=== PATIENT | female | born 1995 | race Caucasian/White ===

== ENCOUNTER 2018-05-30 15:00 | Observation (INO) | payer OTHER, BC ==
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
== END 2018-05-30 20:30 | disposition home or self-care (01) ==
LOC: MW.OBCHECK 15:00 → MW.ED 15:00 → MW.OBCHECK 15:36 → EDSTATUS 15:47 → MW.OB 15:48
PROVIDERS: ADMIT Obstetrics & Gynecology; ATTEND Obstetrics & Gynecology
DX: O99.89 Other specified diseases and conditions complicating pregnancy, childbirth and the puerperium (principal); R10.10 Upper abdominal pain, unspecified; O46.93 Antepartum hemorrhage, unspecified, third trimester; Z3A.29 29 weeks gestation of pregnancy
CPT/HCPCS: 36415; 59025; 76819; 76819-26; 81003; 85025; 86850; 86900; 86901; 99282; G0378

== ENCOUNTER 2018-08-22 06:53 | Emergency (ER) | payer BC ==
[2018-08-22] MEDS ORDERED: Alum Hydrox/Mag Hydrox/Simeth 15 ML, Lidocaine 2% 5 ML PO ONE ×2 (07:12)
[2018-08-22] MEDS ORDERED: Sodium Chloride 0.9% 1,000 ML IV ONE (07:14)
--- NOTE | 2018-08-22 07:14 | EDM.PDOC ---
ED HPI GENERAL MEDICAL PROBLEM - General Chief Complaint: Abdominal Pain Stated Complaint: ABD PAIN Time Seen by Provider: 08/22/18 07:08 - History of Present Illness INITIAL COMMENTS - FREE TEXT/NARRATIVE: HISTORY AND PHYSICAL: History of present illness: Patient is a 22-year-old female past 3 weeks from a vaginal delivery without complications who presents with return of intermittent epigastric pain she states she did some lifting a week ago but did not think much about that this is been episodic she denies history of known gallbladder disease or other complaints. She's had no melena or hematochezia no vomiting no history of gastritis or ulcer. Review of systems: As per history of present illness and below otherwise all systems reviewed and negative. Past medical history: As per history of present illness and as reviewed below otherwise noncontributory. Surgical history: As per history of present illness and as reviewed below otherwise noncontributory. Social history: No reported history of drug or alcohol abuse. Family history: As per history of present illness and as reviewed below otherwise noncontributory. Physical exam: HEENT: Atraumatic, normocephalic, pupils reactive, negative for conjunctival pallor or scleral icterus, mucous membranes moist, throat clear, neck supple, nontender, trachea midline. Lungs: Clear to auscultation, breath sounds equal bilaterally, chest nontender. Heart: S1S2, regular, negative for clicks, rubs, or JVD. Abdomen: Soft, nondistended, mild tenderness in epigastrium is not well localized is no rebound no guarding Negative for masses or hepatosplenomegaly. Negative for costovertebral tenderness. Pelvis: Stable nontender. Genitourinary: Deferred. Rectal: Deferred. Extremities: Atraumatic, negative for cords or calf pain. Neurovascular unremarkable. Neuro: Awake, alert, oriented. Cranial nerves II through XII unremarkable. Cerebellum unremarkable. Motor and sensory unremarkable throughout. Exam nonfocal. Diagnostics: CBC CMP lipase UA chest x-ray EKG ultrasound gallbladder Therapeutics: Saline 1 L bolus GI cocktail Impression: #1 intermittent epigastric abdominal pain #23 weeks Definitive disposition and diagnosis as appropriate pending reevaluation and review of above. epigastric Pain Score (Numeric/FACES): 6 - Related Data Allergies Allergy/AdvReac Type Severity Reaction Status Date / Time No Known Allergies Allergy Verified 08/22/18 06:57 Home Meds: Home Meds . [No Known Home Meds] 08/22/18 [History] Past Medical History - Past Health History Medical/Surgical History: Denies Medical/Surgical History HEENT History: Reports: None Cardiovascular History: Reports: None Respiratory History: Reports: None Gastrointestinal History: Reports: None Genitourinary History: Reports: None CREDIT REPORTER History: Reports: , Other (See Below) Other CREDIT REPORTER History: preeclampsia, Musculoskeletal History: Reports: None Neurological History: Reports: None Psychiatric History: Reports: None Endocrine/Metabolic History: Reports: None Hematologic History: Reports: None Immunologic History: Reports: None Oncologic (Cancer) History: Reports: None Dermatologic History: Reports: None - Past Surgical History Head Surgeries/Procedures: Reports: None HEENT Surgical History: Reports: None Cardiovascular Surgical History: Reports: None Respiratory Surgical History: Reports: None GI Surgical History: Reports: None Female Surgical History: Reports: None Endocrine Surgical History: Reports: None Neurological Surgical History: Reports: None Musculoskeletal Surgical History: Reports: None Oncologic Surgical History: Reports: None Dermatological Surgical History: Reports: None Social & Family History - Family History Family Medical History: Noncontributory - Tobacco Use Smoking Status *Q: Never Smoker Second Hand Smoke Exposure: No - Caffeine Use Caffeine Use: Reports: Coffee - Recreational Drug Use Recreational Drug Use: No ED ROS GENERAL - Review of Systems Review Of Systems: ROS reveals no pertinent complaints other than HPI. ED EXAM, GENERAL - Physical Exam Exam: See Below (See dictation) Course - Vital Signs Last Recorded V/S: Last Vital Signs Temp 35.8 C 08/22/18 06:54 Pulse 81 08/22/18 06:54 Resp 18 08/22/18 06:54 BP 149/61 H 08/22/18 06:54 Pulse Ox 94 L 08/22/18 06:54 - Orders/Labs/Meds Orders: Active Orders 24 hr Category Date Time Status EKG Documentation Completion [RC] STAT Care 08/22/18 07:12 Active CULTURE URINE [RM] Stat Lab 08/22/18 07:01 Received Labs: Laboratory Tests 08/22/18 08/22/18 08/22/18 Range/Units 07:01 07:25 07:25 WBC 7.09 (4.0-11.0) K/uL RBC 4.10 L (4.30-5.90) M/uL Hgb 12.1 (12.0-16.0) g/dL Hct 37.8 (36.0-46.0) % MCV 92.2 (80.0-98.0) fL MCH 29.5 (27.0-32.0) pg MCHC 32.0 (31.0-37.0) g/dL RDW Std Deviation 43.7 (28.0-62.0) fl RDW Coeff of Kaylee 13 (11.0-15.0) % Plt Count 401 H (150-400) K/uL MPV 9.10 (7.40-12.00) fL Neut % (Auto) 53.3 (48.0-80.0) % Lymph % (Auto) 31.2 (16.0-40.0) % [place] % (Auto) 12.6 (0.0-15.0) % Eos % (Auto) 2.5 (0.0-7.0) % Baso % (Auto) 0.4 (0.0-1.5) % Neut # (Auto) 3.8 (1.4-5.7) K/uL Lymph # (Auto) 2.2 (0.6-2.4) K/uL [place] # (Auto) 0.9 H (0.0-0.8) K/uL Eos # (Auto) 0.2 (0.0-0.7) K/uL Baso # (Auto) 0.0 (0.0-0.1) K/uL Nucleated RBC % 0.0 /100WBC Nucleated RBCs # 0 K/uL Sodium 141 (136-145) mmol/L Potassium 3.7 (3.5-5.1) mmol/L Chloride 106 (98-107) mmol/L Carbon Dioxide 24.0 (21.0-32.0) mmol/L BUN 11 (7.0-18.0) mg/dL Creatinine 0.9 (0.6-1.0) mg/dL Est Cr Clr Drug Dosing 78.20 mL/min Estimated GFR (MDRD) > 60.0 ml/min Glucose 107 H (74-106) mg/dL Calcium 9.2 (8.5-10.1) mg/dL Total Bilirubin 0.4 (0.2-1.0) mg/dL AST 62 H (15-37) IU/L ALT 41 (14-63) IU/L Alkaline Phosphatase 105 (46-116) U/L Total Protein 7.3 (6.4-8.2) g/dL Albumin 3.5 (3.4-5.0) g/dL Globulin 3.8 (2.6-4.0) g/dL Albumin/Globulin Ratio 0.9 (0.9-1.6) Lipase 121 (73-393) U/L Urine Color YELLOW Urine Appearance HAZY Urine pH 5.5 (5.0-8.0) Ur Specific [place] 1.025 (1.001-1.035) Urine Protein NEGATIVE (NEGATIVE) mg/dL Urine Glucose (UA) NEGATIVE (NEGATIVE) mg/dL Urine Ketones NEGATIVE (NEGATIVE) mg/dL Urine Occult Blood MODERATE H (NEGATIVE) Urine Nitrite NEGATIVE (NEGATIVE) Urine Bilirubin NEGATIVE (NEGATIVE) Urine Urobilinogen 0.2 (<2.0) EU/dL Ur Leukocyte Esterase TRACE H (NEGATIVE) Urine RBC 5-8 (0-2/HPF) Urine WBC 5-8 (0-5/HPF) Ur Epithelial Cells RARE (NONE-FEW) Urine Bacteria FEW (NEGATIVE) Urine Mucus LIGHT (NONE-MOD) Meds: Medications Discontinued Medications Generic Name Dose Route Start Last Admin Trade Name Leticia PRN Reason Stop Dose Admin Al Hydroxide/Mg Hydroxide 15 0 ml 08/22/18 07:12 08/22/18 07:28 ml/ Lidocaine HCl 5 ml PO 08/22/18 07:13 20 each ONETIME ONE Administration Sodium Chloride 1,000 mls @ 999 mls/hr 08/22/18 07:14 08/22/18 07:28 Normal Saline IV 08/22/18 08:14 999 mls/hr STAT ONE Administration Departure - Departure Time of Disposition: 08:38 Disposition: Home, Self-Care 01 Condition: Good Clinical Impression: Cholelithiasis, Biliary colic - Discharge Information Referrals: PCP,None [Primary Care Provider] - Forms: ED Department Discharge Additional Instructions: The following information is given to patients seen in the emergency department who are being discharged to home. This information is to outline your options for follow-up care. We provide all patients seen in our emergency department with a follow-up referral. The need for follow-up, as well as the timing and circumstances, are variable depending upon the specifics of your emergency department visit. If you don't have a primary care physician on staff, we will provide you with a referral. We always advise you to contact your personal physician following an emergency department visit to inform them of the circumstance of the visit and for follow-up with them and/or the need for any referrals to a consulting specialist. The emergency department will also refer you to a specialist when appropriate. This referral assures that you have the opportunity for followup care with a specialist. All of these measure are taken in an effort to provide you with optimal care, which includes your followup. Under all circumstances we always encourage you to contact your private physician who remains a resource for coordinating your care. When calling for followup care, please make the office aware that this follow-up is from your recent emergency room visit. If for any reason you are refused follow-up, please contact the [facility] emergency department at and asked to speak to the emergency department charge nurse. [facility] Professional Building [address] [place] [address], [address] [place] [address] Diet as discussed follow-up Gen. surgery above push fluids clear liquids 24 hours return as needed as discussed - My Orders Last 24 Hours: My Active Orders 08/22/18 07:01 CULTURE URINE [RM] Stat 08/22/18 07:12 EKG Documentation Completion [RC] STAT - Assessment/Plan Last 24 Hours: My Active Orders 08/22/18 07:01 CULTURE URINE [RM] Stat 08/22/18 07:12 EKG Documentation Completion [RC] STAT
[2018-08-22 08:02] LABS: CHLORIDE,CL 106 mmol/L (98-107); SODIUM,NA 141 mmol/L (136-145)
--- NOTE | 2018-08-22 08:24 | CR ---
INDICATION: Shortness of breath. TECHNIQUE: PA chest. COMPARISON: None. FINDINGS: The cardiac, mediastinal and hilar contours are normal. Normal pulmonary vasculature. Lungs are grossly clear. No pleural fluid or pneumothorax. IMPRESSION: No signs of acute thoracic disease. Dictated by Julien Hopson MD @ 08/22/2018 8:23:33 AM Dictated by: Julien Hopson MD @ 08/22/2018 08:23:39 (Electronically Signed)
--- NOTE | 2018-08-22 08:24 | US ---
INDICATION: Epigastric pain. TECHNIQUE: Transabdominal imaging. COMPARISON: None. FINDINGS: The pancreas is obscured by bowel gas. There are multiple small stones seen within the nondistended gallbladder, with no significant gallbladder wall thickening or pericholecystic free fluid to suggest acute cholecystitis. No bile duct dilatation. The CBD measures 3 mm. Right kidney appears unremarkable. IMPRESSION: Cholelithiasis without sonographic evidence of acute cholecystitis. Dictated by Julien Hopson MD @ 08/22/2018 8:21:35 AM Dictated by: Julien Hopson MD @ 08/22/2018 08:22:03 (Electronically Signed)
== END 2018-08-22 09:09 | disposition home or self-care (01) ==
LOC: MW.ED 06:53
DX: O99.89 Other specified diseases and conditions complicating pregnancy, childbirth and the puerperium (principal); R10.13 Epigastric pain; Z3A.23 23 weeks gestation of pregnancy
CPT/HCPCS: 71045; 76705; 80053; 81001; 83690; 85025; 87086; 93005; 96360; 99284; A9270; J7040; 99283

== ENCOUNTER 2018-10-20 06:28 | Day surgery (SDC) | payer BC ==
[~2018-10-20 06:28] MED LIST: Acetaminophen/oxyCODONE 325-5 MG Tab PO PRN; Lactated Ringers 1,000 ML IV SCH; ceFAZolin 2 GM in Premix Bag 1 BAG IV ONE
[2018-10-20] MEDS ORDERED: Rocuronium 100 MG/10 ML MDV ONE (07:03)
[2018-10-20] MEDS ORDERED: Midazolam 1 MG/ML 2 ML SDV ONE (07:03)
[2018-10-20] MEDS ORDERED: Lidocaine 2% 5 ML SDV ONE (07:03)
[2018-10-20] MEDS ORDERED: Propofol 200 MG/20 ML SDV ONE (07:03)
[2018-10-20] MEDS ORDERED: Dexamethasone 4 MG/ML 5 ML MDV ONE (07:04)
[2018-10-20] MEDS ORDERED: Ondansetron 4 MG/2 ML SDV ONE (07:04)
[2018-10-20] MEDS ORDERED: fentaNYL 250 MCG/5 ML SDV ONE (07:04)
[2018-10-20] MEDS ORDERED: Bupivacaine 25%/EPINEPHrine/PF 30 ML ONE (07:28)
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
[2018-10-20] MEDS ORDERED: ceFAZolin/Dextrose,Iso-Osmotic 2 GM/50 ML Duplex Bag IV ONE (07:45)
[2018-10-20] MEDS ORDERED: Ketorolac 30 MG/ML SDV ONE (08:19)
[2018-10-20] MEDS ORDERED: Glycopyrrolate 0.2 MG/ML SDV ONE (08:19)
[2018-10-20] MEDS ORDERED: Neostigmine Methylsulfate 1 MG/ML 5 ML Syringe ONE (08:19)
[2018-10-20] MEDS ORDERED: HYDROmorphone 2 MG/ML Syringe ONE (09:33)
[2018-10-20] MEDS ORDERED: Octyl 2-Cyanoacrylate 1 Tube ONE (09:35)
[2018-10-20] MEDS: fentaNYL 100 MCG/2 ML SDV IVPUSH PRN ×2 (10:18→10:28)
--- NOTE | 2018-10-20 10:37 | PCM.OPNOTE ---
- General Post-Op/Procedure Note Date of Surgery/Procedure: 10/20/18 Operative Procedure(s): lap constantine Findings: heavy interacting w surrounding omentum; wall is not thickened; [id number] Pre Op Diagnosis: chronic and acute cholecystitis Post-Op Diagnosis: Same Anesthesia Technique: General ET Tube Primary Surgeon: Tommy Dior Pathology: sent Complications: None Condition: Good
--- NOTE | 2018-10-20 10:47 | PCM.POSTAN ---
POST ANESTHESIA ASSESSMENT - MENTAL STATUS Mental Status: Alert, Oriented - RESPIRATORY Respiratory Status: Respiratory Rate WNL, Airway Patent, O2 Saturation Stable - CARDIOVASCULAR CV Status: Pulse Rate WNL, Blood Pressure Stable - GASTROINTESTINAL GI Status: No Symptoms - PAIN Pain Score: 6 - POST OP HYDRATION Hydration Status: Adequate & Stable
--- NOTE | 2018-10-20 11:10 | OR ---
SURGEON: Tommy Dior MD DATE OF PROCEDURE: 10/20/2018 PREOPERATIVE DIAGNOSIS: Acute on chronic cholecystitis. POSTOPERATIVE DIAGNOSIS: Acute on chronic cholecystitis. PROCEDURE PROPOSED: Laparoscopic cholecystectomy. PROCEDURE PERFORMED: Laparoscopic cholecystectomy. PRIMARY SURGEON: Tommy Dior MD. COMPLICATIONS: None. FINDINGS: Gallbladder was severely interacting with surrounding organ, covered by omentum, consistent with chronic inflammatory situation, and wall is not thickened. PROCEDURE NOTE: The patient was taken to the operating room and placed in the supine position. After the intubation of general endotracheal anesthesia, the patient's abdomen was prepped and draped in the usual sterile fashion. Using [place], a 12 mm trocar was placed supraumbilically and then followed with pneumoperitoneum. A 5 mm trocar was placed in the epigastrium and two 5 mm trocars placed in the right upper quadrant. The placement of the last three trocars was done under direct video supervision. Upon gaining entrance to the abdominal cavity, an extensive examination was then performed. The gallbladder was located and identified and retracted to the dome of the liver at the triangle of Calot. The cystic duct was clipped three more times and then using the endoscopic clip, was transected with placement of the endoscopic clip and transection was performed with care, ensuring the posterior prong of the instruments were clearly visualized prior to exercising the procedure. The gallbladder was dissected using electrocautery out of the liver bed and then removed using endoscopic bag through the umbilical site. The gallbladder was removed en bloc and there was no bile spillage and this was then followed with extensive irrigation until the bile was clear from blood and bile. The trocars were then removed under direct video supervision. The 12 mm umbilical site was then closed with deep stitches using 0 Vicryl followed with proximal stitches using 3-0 Vicryl and Dermabond. The other three trocar sites were closed with 3-0 Vicryl followed with approximation of skin with Dermabond. The patient was then awakened and extubated and transferred to the recovery room in hemodynamically stable condition. At the conclusion of the surgery, before closing the abdominal wound, instrument count and sponge count were done and were correct. The patient tolerated the procedure well and there were no intraoperative complications. Dr. Dior was present through the whole procedure. Just before surgery, a timeout was called. The patient was identified and procedure identified and procedure started. Intraoperative findings, as dictated above. As always, thank you for the kind referral. TRAVIS / ALEISHA /[id number]
[2018-10-20] MEDS ORDERED: oxyCODONE 5 MG Tab PO ONE (11:22)
--- NOTE | 2018-10-20 12:57 | PCM48HPAN ---
Post Anesthesia Note - EVALUATION WITHIN 48HRS OF ANESTHETIC Vital Signs in Normal Range: Yes Patient Participated in Evaluation: Yes Respiratory Function Stable: Yes Airway Patent: Yes Cardiovascular Function Stable: Yes Hydration Status Stable: Yes Pain Control Satisfactory: Yes Nausea and Vomiting Control Satisfactory: Yes Mental Status Recovered: Yes Resp Rate: 16
[2018-10-20] MEDS ORDERED: Haloperidol Lactate 5 MG/ML SDV IM ONE (13:04)
== END 2018-10-20 14:30 | disposition home or self-care (01) ==
LOC: MW.SDS 06:28
PROVIDERS: ATTEND Surgery
DX: K80.10 Calculus of gallbladder with chronic cholecystitis without obstruction (principal); E66.9 Obesity, unspecified; Z68.34 Body mass index [BMI] 34.0-34.9, adult; Z86.79 Personal history of other diseases of the circulatory system; Z91.013 Allergy to seafood
CPT/HCPCS: 47562; 81025; A9270; J0131; J0690; J1100; J1170; J1630; J1885; J2001; J2250; J2405; J2704; J3010; J3490; J7120; 88304

== ENCOUNTER 2019-06-30 00:56 | Emergency (ER) | payer SELFPAY ==
--- NOTE | 2019-06-30 01:38 | EDM.PDOC ---
ED HPI GENERAL MEDICAL PROBLEM - General Chief Complaint: Headache Stated Complaint: FLU SYMPTOMS, HIGH BP, 36 WEEKS Time Seen by Provider: 06/30/19 01:32 Source of Information: Reports: Patient History Limitations: Reports: No Limitations - History of Present Illness INITIAL COMMENTS - FREE TEXT/NARRATIVE: This is a 23-year-old female who presents to the emergency room with chief complaint of headache not feeling well. Patient has a history of preeclampsia and her blood pressure was 130 systolic yesterday and is 160 today. Patient had a previous delivery 2 weeks early because of preeclampsia. Patient is 36 weeks this time. Onset: Today Duration: Getting Worse Location: Reports: Head Severity: Moderate Improves with: Reports: None Worsens with: Reports: None Associated Symptoms: Reports: Chest Pain chest Pain Score (Numeric/FACES): 4 - Related Data Allergies Allergy/AdvReac Type Severity Reaction Status Date / Time seafood Allergy Shortness Uncoded 06/30/19 01:03 of Breath Home Meds: Home Meds Acetaminophen [Tylenol] 325 mg PO ASDIRECTED 06/30/19 [History] No122/Iron/Folic Acid [ Multi Tablet] 1 each PO 06/30/19 [ History] Past Medical History - Past Health History Medical/Surgical History: Denies Medical/Surgical History HEENT History: Reports: None, Other (See Below) Other HEENT History: wears glasses Cardiovascular History: Reports: None, Heart Murmur, Other (See Below) Other Cardiovascular History: hypertensive during recent Respiratory History: Reports: None Gastrointestinal History: Reports: None, Cholelithiasis Genitourinary History: Reports: None, UTI, Recurrent [employer] History: Reports: None, Other [employer] History: NVD 2 months ago Neurological History: Reports: None Psychiatric History: Reports: None Endocrine/Metabolic History: Reports: None, Obesity/BMI 30+ Dermatologic History: Reports: None - Infectious Disease History Infectious Disease History: Reports: None - Past Surgical History Head Surgeries/Procedures: Reports: None HEENT Surgical History: Reports: None Cardiovascular Surgical History: Reports: None GI Surgical History: Reports: None Female Surgical History: Reports: None Endocrine Surgical History: Reports: None - Past Imaging History Past Imaging History: Reports: None Social & Family History - Family History Family Medical History: Noncontributory - Tobacco Use Smoking Status *Q: Never Smoker Second Hand Smoke Exposure: No - Caffeine Use Caffeine Use: Reports: Coffee - Recreational Drug Use Recreational Drug Use: No ED ROS GENERAL - Review of Systems Review Of Systems: See Below Constitutional: Reports: No Symptoms, Malaise HEENT: Reports: No Symptoms, Other Respiratory: Reports: No Symptoms Cardiovascular: Reports: No Symptoms Endocrine: Reports: No Symptoms GI/Abdominal: Reports: No Symptoms : Reports: No Symptoms Musculoskeletal: Reports: No Symptoms Skin: Reports: No Symptoms Neurological: Reports: Headache Psychiatric: Reports: No Symptoms Hematologic/Lymphatic: Reports: No Symptoms Immunologic: Reports: No Symptoms - Physical Exam Exam: See Below Text/Narrative:: Patient's exam is as follows pupils are equal reactive light and accommodation chest normal S1-S2 lungs are clear abdomen patient is patient has no evidence of brisk reflexes . EKG is normal. Since influenza screen is negative Exam Limited By: No Limitations General Appearance: Alert, WD/WN, Anxious Eye Exam: Bilateral Eye: Normal Fundi, Normal Inspection Ears: Normal External Exam, Normal Canal, Hearing Grossly Normal, Normal TMs Nose: Normal Inspection, Normal Mucosa, No Blood Throat/Mouth: Normal Inspection, Normal Lips, Normal Teeth, Normal Gums, Normal Oropharynx, Normal Voice, No Airway Compromise Head Exam: Atraumatic, Normocephalic Neck: Normal Inspection, Supple, Non-Tender Respiratory/Chest: No Respiratory Distress, Lungs Clear, Normal Breath Sounds, No Accessory Muscle Use, Chest Non-Tender Cardiovascular: Normal Peripheral Pulses, Regular Rate, Rhythm, No Edema GI/Abdominal: Normal Bowel Sounds (Female) Exam: Deferred Rectal (Female) Exam: Deferred Neuro Exam (Abbreviated): Alert, Oriented, CN II-XII Intact, Normal Cognition, Normal Reflexes, No Motor/Sensory Deficits Back Exam: Normal Inspection, Full Range of Motion Extremities: Normal Inspection, Normal Range of Motion, No Pedal Edema, Normal Capillary Refill Psychiatric: Normal Affect, Normal Mood Skin Exam: Warm, Dry, Intact, Normal Color EKG INTERPRETATION Rhythm: NSR [place]: Normal QRS: Normal ST-T: Normal QT: Normal Course - Vital Signs Last Recorded V/S: Last Vital Signs Temp 98.4 F 06/30/19 01:05 Pulse 93 06/30/19 01:05 Resp 16 06/30/19 01:05 BP 160/91 H 02/29/20 01:05 Pulse Ox 94 L 06/30/19 01:05 - Orders/Labs/Meds Orders: Active Orders 24 hr Category Date Time Status EKG Documentation Completion [RC] STAT Care 06/30/19 01:05 Active Departure - Departure Time of Disposition: 01:39 Disposition: Home, Self-Care 01 Condition: Good Clinical Impression: Pre-eclampsia, Tension-type headache - Discharge Information Instructions: Hypertension During , [id number] Referrals: PCP,None [Primary Care Provider] - Sepsis Event Note - Evaluation Sepsis Screening Result: No Definite Risk - Focused Exam Vital Signs: Vital Signs Temp Pulse Resp BP Pulse Ox 06/30/19 01:05 98.4 F 93 16 160/91 H 94 L Date Exam was Performed: 06/30/19 Time Exam was Performed: 01:32 - My Orders Last 24 Hours: My Active Orders 06/30/19 01:05 EKG Documentation Completion [RC] STAT - Assessment/Plan Last 24 Hours: My Active Orders 06/30/19 01:05 EKG Documentation Completion [RC] STAT
[2019-06-30] MEDS ORDERED: Acetaminophen 500 MG Tab ONE (02:50)
== END 2019-06-30 01:35 | disposition home or self-care (01) ==
LOC: MW.ED 00:56
DX: O99.355 Diseases of the nervous system complicating the puerperium (principal); G44.209 Tension-type headache, unspecified, not intractable; O14.93 Unspecified pre-eclampsia, third trimester; O99.210 Obesity complicating pregnancy, unspecified trimester; Z3A.36 36 weeks gestation of pregnancy; Z91.013 Allergy to seafood
CPT/HCPCS: 87804; 93005; 99284; A9270; 99283